=== PATIENT | male | born 1940 | race Caucasian/White ===

== ENCOUNTER 2016-05-11 09:56 | Inpatient (IN) | payer MEDICARE, SELFPAY ==
--- NOTE | ~2016-05-11 | CN ---
Consultation Report [facility] [address] [place]. [address] NAME: MISBAH PLAZA : 44 STATUS : ADM IN [facility]#: [id number] AGE: 75 ADM/REG DATE : 05/11/16 MR#: [id number] REPORT SERV DATE: 05/11/16 DICTATED BY: CHANDLER MANCIA IV DATE: 05/11/16 REPORT STATUS : Draft TRANSCRIBED BY: BUD DATE: 05/11/16 PULMONARY CONSULTATION. DATE OF CONSULTATION: 05/11/2016 REASON FOR REQUEST: Acute on chronic hypercapnic respiratory failure with pneumonia. HISTORY OF PRESENT ILLNESS: History is obtained from the records and from the patient. Mr. Plaza is a 75-year-old male with a history of very severe COPD, paroxysmal atrial fibrillation with rapid ventricular response, remote DVT, and right lung nodule to be followed on serial CT scans, who was admitted with acute on chronic hypercapnic respiratory failure, COPD exacerbation, and right lower lobe pneumonia. The patient was in his normal state of marginal health until about 3 weeks ago when he developed increased chest congestion, shortness of breath, and cough productive of brown phlegm. He had chills, though no documented fever. He was given an unspecified antibiotic by his primary care physician, which he thinks is Ceftin 500 mg for 10 days. Initially, he felt somewhat better, though developed recurrent symptoms. Last night, he felt like he was going to and was unable to get his breath. Because of worsening symptoms, he sought evaluation in the emergency room. Here, chest x-ray demonstrated a new right lower lobe infiltrate and he is more hypercapnic beyond baseline values. He was placed on BiPAP with clinical improvement. The patient had no clear exposure to ill individuals. There was no aspiration. He was compliant with oxygen at 3 L and his bronchodilator medications. He is on Anoro Ellipta and Breo Ellipta and was using his nebulizer twice a day. PULMONARY HISTORY: Remarkable for no history of childhood asthma. He has very severe COPD with a FEV1 of 0.56 L or 19% of predicted. He has not had pneumonia to his knowledge. He has a 80-xndo-dghj smoking history, having quit in 2015. He is not up to date on immunizations, having previously refused. He has additionally not participated in pulmonary rehabilitation. PAST MEDICAL HISTORY: 1. Severe COPD. 2. Paroxysmal atrial fibrillation. 3. Remote DVT. 4. Right lung nodule. SURGERIES: He has never had any surgeries. ALLERGIES: THERE ARE NO KNOWN DRUG ALLERGIES, HOWEVER, HE HAS GOTTEN CRAZY WITH STEROIDS IN THE PAST. OUTPATIENT MEDICATIONS: The patient is on DuoNebs four times a day. He was on Augmentin 500 mg q.10 hours, Lipitor 40 mg daily, diltiazem 240 mg daily, Mucinex 600 mg daily, Lopressor 25 mg twice a day, Spiriva one capsule daily, Advair 250/50, and theophylline 200 mg q.12 Consultation Report [place] [id number] [place]. [address] NAME: MISBAH PLAZA : 42 STATUS : ADM IN [facility]#: [id number] AGE: 75 ADM/REG DATE : 05/11/16 MR#: [id number] REPORT SERV DATE: 05/11/16 DICTATED BY: CHANDLER MANCIA IV DATE: 05/11/16 REPORT STATUS : Draft TRANSCRIBED BY: BUD DATE: 05/11/16 hours, and Decadron was added by Dr. Pedroza. SOCIAL HISTORY: Remarkable for the tobacco use as above. There is no alcohol or illicit drug use. He is and lives with a step granddaughter. FAMILY HISTORY: Remarkable for brother with emphysema. He is unclear of his family history. His parents of just old age. REVIEW OF SYSTEMS: 14 systems reviewed and pertinent positives as above. PHYSICAL EXAMINATION: GENERAL: This is a thin, elderly male, currently arousable, in no current distress. VITAL SIGNS: Blood pressure is 122/65, heart rate is 88, respiratory rate is 19, saturation 93% on BiPAP, temperature is 98.1. HEENT: The patient is normocephalic, atraumatic. Extraocular movements are intact. Pupils react to light. Sclerae and conjunctivae normal. He has a BiPAP mask in place. On quick removal, he has a Mallampati II to III airway with some narrowing of the posterior pharyngeal space. No gross oral lesions are noted. NECK: Without any palpable lymphadenopathy or thyromegaly. CHEST: The patient has some bibasilar, dry inspiratory crackles. There are scattered expiratory rhonchi with a prolonged expiratory phase. Breath sounds are symmetrically diminished. CARDIOVASCULAR: Jugular venous pulsations are difficult to elicit. He has 1+ carotid upstrokes. No obvious bruit. He has a very distant regular S1, S2 with no clear murmur, S3, S4. Peripheral pulses are diminished. ABDOMEN: Scaphoid, soft, nontender. There are hypoactive bowel sounds. There is no palpable hepatosplenomegaly or mass. EXTREMITIES: Demonstrate no cyanosis, clubbing, edema, or palpable cords. He does have some muscle wasting. NEUROLOGIC: Strength is 5-/5 and sensation is intact to light touch. It is a nonfocal exam. IMAGING: Chest x-ray demonstrates a rotated film. There is some minimal elevation of the left hemidiaphragm. There is a new right lower lobe infiltrate. LABS: CBC: Hemoglobin 12, hematocrit 38.6, platelet count was 204,000, white count of 16. INR was 3.5. Chemistries: Sodium 136, potassium 4.4, chloride 89, bicarb 41, BUN 11, creatinine 0.76, glucose of 159, magnesium 1.9. BNP is 706. Most recent blood gas, pH 7.22, pCO2 of 85, PO2 of 86 on BiPAP. ASSESSMENT AND PLAN: 1. Respiratory. We will discontinue the Decadron and Elvin-Dur, which you do not give for a hospitalized patient. We will give him low-dose Solu-Medrol 20 mg q.12 hours, Consultation Report [address] [place]. [address] NAME: MISBAH PLAZA : 44 STATUS : ADM IN PAT#: [id number] AGE: 75 ADM/REG DATE : 05/11/16 MR#: [id number] REPORT SERV DATE: 05/11/16 DICTATED BY: CHANDLER MANCIA IV DATE: 05/11/16 REPORT STATUS : Draft TRANSCRIBED BY: BUD DATE: 05/11/16 DuoNebs will be continued q.4 hours with albuterol q.2 hours as needed, Brovana unit dose twice a day, and Pulmicort 1 mg twice a day. BiPAP will be humidified and used given breaks as tolerated. ABG we obtained only for worsening clinical status. I will give an Acapella valve three times a day, EzPAP when not on the BiPAP. 2. Infectious disease. The patient has recent antibiotics, so we will broaden coverage with cefepime 1 g q.6 hours, vancomycin was given at times a single dose, and he will be given Levaquin to cover atypical organisms. Sputum was sent for Gram stain culture. Blood cultures have been sent. Urine antigen will be sent for Legionella as well as for Pneumococcus. Procalcitonin level will be added to blood in the lab. Immunizations status has been discussed. 3. Neurologic. Thiamine for his debilitated state. Precedex if needed for agitation. 4. Renal. We will place the patient on magnesium 2 g. Phosphate level will be obtained. Electrolyte replacement protocol has been ordered. 5. Hematologic. Therapeutic INR. 6. Gastrointestinal. We will add liver panel to the blood in the lab. 7. Endocrinologic. Thyroid functions will be obtained. Insulin sliding scale has been ordered particularly with the steroids. Hemoglobin A1c will be added to blood in the lab. 8. Social. I had a long discussion with the patient concerning his wishes if he continues to deteriorate. He understands the severe nature of his disease. He wishes to be a do not resuscitate, though we will continue use of BiPAP. Thank you for consulting us. We will follow the patient with you. NM/MODL Chandler Mancia IV, M.D. / [id number] CC: Jagjit Anguiano M.D.
--- NOTE | ~2016-05-11 | HP ---
History And Physical [place] [id number] [place]. [address] NAME: MISBAH MONROE : 44 STATUS : ADM IN [facility]#: [id number] AGE: 75 ADM/REG DATE : 05/11/16 MR#: [id number] REPORT SERV DATE: 05/11/16 DICTATED BY: ISSAC NOE DATE: 05/11/16 REPORT STATUS : Draft TRANSCRIBED BY: MODJenniffer DATE: 05/11/16 DATE OF ADMISSION: 05/11/2016 REASON FOR ADMISSION: Hypercarbic respiratory failure with pneumonia. HISTORY OF PRESENT ILLNESS: This is a 75-year-old white male with known history of pneumonia. He has about a 70-pack year history of smoking. Quit in 2014. He also quit alcohol in 2014. He has been losing weight recently. He has been followed by Dr. Granda at the [facility]. He has also been followed up with his primary care by Dr. Atif Payan, in both [place] and [place]. The patient has been short of breath the last three days, not eating very much. He has been losing more weight. He presented to the emergency room with a PaCO2 of 75, was placed on BiPAP, 15/5, and his PaCO2 worsened to 86. He had a chest x-ray showing evidence of left lower lobe pneumonia. He also has chronic fibrotic lung disease with scarring throughout. Because of shortness of breath, respiratory failure, and need for continuous BiPAP, the patient is being admitted to the Intermediate Intensive Care Unit. Dr. Granda will be consulted as he does have significant knowledge of the patient's history in the past. The patient says he was in the hospital before and went crazy when they gave him Solu- Medrol, though he was in the Intensive Care Unit setting and may have had some hallucination anxiety because of that as well. He is on 2.5 L a minute nasal cannula oxygen at home, and has been declining over the last two days. He does have dyspnea with exertion. Uses oxygen continuously. He had a cold recently with a cough for about two weeks duration prior to this abrupt decline. PAST MEDICAL HISTORY: He was last hospitalized here in February 2015. He has not been hospitalized since that time. He has atrial fibrillation and rapid ventricular response. DC electrical cardioversion was attempted by Dr. Ramires. He is on Coumadin for that. He has lower extremity deep venous thrombosis previously diagnosed at [facility]. He does have persistent leukocytosis and right upper lobe nodule. SOCIAL HISTORY: He grew up in [place], [place]; moved up here about 30 years ago. Worked at [employer] in both [place] and in [place]. He smoked cigarettes most of his life. An extensive approximately 70-pack year. He lives at home with a step granddaughter from [place] in [facility]. He quit smoking cigarettes in 2014. Quit drinking in 2014 as well. He does not attend scientologist. ALLERGIES: INCLUDE SOLU-MEDROL, CAUSING ADVERSE REACTION WITH CONFUSION. FAMILY HISTORY: Peripheral vascular disease runs in the family. Mother and father of old age of unknown causes. MEDICATIONS: Home medications DuoNeb 4 times a day, Augmentin 500 b.i.d. for 10 days, History And Physical [address] [address] NAME: MISBAH MONROE : 44 STATUS : ADM IN [facility]#: [id number] AGE: 75 ADM/REG DATE : 05/11/16 MR#: [id number] REPORT SERV DATE: 05/11/16 DICTATED BY: ISSAC NOE DATE: 05/11/16 REPORT STATUS : Draft TRANSCRIBED BY: BUD DATE: 05/11/16 vitamin C 500 mg p.o. daily, Lipitor 40 mg p.o. daily, diltiazem ER 240 mg p.o. daily, Coretta- [place] Cold and Cough formula every 4 hours as needed, Advair Diskus 250/50 once a day, Mucinex 600 mg p.o. q.12 hours, Motrin 600 mg one time a day, metoprolol 25 mg p.o. b.i.d., Theraflu cold packs twice a day, Spiriva once a day, fflr-xfw-rsqyizj potassium, immune support system vitamins, and warfarin 6 mg p.o. at bedtime. REVIEW OF SYSTEMS: He denies chest pain. He has shortness of breath. He has a cough, productive of yellow sputum. He has had difficulty breathing, dyspnea on exertion, swelling in the lower extremities. No melena, hematemesis, fits, seizures, unilateral weakness, nausea, vomiting, or diarrhea. The remainder of the review of systems is negative. PHYSICAL EXAMINATION: VITAL SIGNS: His blood pressure is 136/72, with a heart rate of 80, respiratory rate 16, and afebrile. HEENT: EOMI. Sclerae clear. Conjunctivae pink. NECK: No bruit without any JVD. CHEST: Decreased breath sounds throughout with some diffuse expiratory wheezes. HEART: Regular S1, S2 without murmur, gallop, or rub. ABDOMEN: Soft, nontender. Bowel sounds are positive. Scaphoid. EXTREMITIES: Have 2+ pitting edema in the ankles. He had distal pulses that are palpable. NEUROLOGIC: His radio repairer is equal and symmetric bilaterally. Coordination is intact. He has no tremor. He is symmetric neurologically bilaterally. He is difficult to hear through the BiPAP mask. SKIN: Pale throughout. No AKs noted, does have some ecchymoses of his arms and hands. LYMPHATICS: There is no adenopathy palpable. LABORATORY DATA: The arterial blood gas #2 was 7.23, 87, and 89. Initial arterial blood gas, 7.29, 75, and 89. White count of 16,000, hemoglobin of 12.0, hematocrit 38.6, and platelets were 204,000. INR of 3.5. Flu screen is negative. Sodium is 136, potassium 4.4, PaCO2 of 41, creatinine 0.76, BUN 11, and glucose 159. Troponin is less than 0.02. BNP was 706. Chest x-ray shows evidence of right basilar atelectasis versus infiltrate. IMPRESSION: 1. Right lower lobe pneumonia. 2. Chronic obstructive pulmonary disease. 3. Pulmonary fibrosis. 4. History of atrial fibrillation. 5. Acute hypercarbic respiratory failure with hypoxemia. 6. Recent upper respiratory tract infection. 7. History of hallucinations with high-dose steroids. History And Physical [address] [address] NAME: MISBAH MONROE : 44 STATUS : ADM IN [facility]#: [id number] AGE: 75 ADM/REG DATE : 05/11/16 MR#: [id number] REPORT SERV DATE: 05/11/16 DICTATED BY: ISSAC NOE DATE: 05/11/16 REPORT STATUS : Draft TRANSCRIBED BY: MODJenniffer DATE: 05/11/16 PLAN: I discussed end-of-life issues with the patient. The patient will except ventilation and intubation in this situation if necessary. Dr. Granda knows him better. We will consult Dr. Granda for help with therapy and prognosis. We will start with on and off CU EzPAP, continuous CPAP, and resuscitation, going to give him IV Zithromax and Rocephin for his pneumonia of the right lower lobe. JACOB/BUD Issac Noe M.D. / [id number] CC: Jagjit Anguiano M.D. William John Fritsch, Jr, MD Hisham F. Qutob, MD William Oellerich, M.D., Ph.D, F.A.C.C.
--- NOTE | ~2016-05-11 | IDS ---
Interim Discharge Summary [facility] [address] [place]. [address] NAME: MISBAH MONROE : 44 STATUS : ADM IN [facility]#: [id number] AGE: 75 ADM/REG DATE : 05/11/16 MR#: [id number] REPORT SERV DATE: 05/15/16 DICTATED BY: JUAN MEJÍA DATE: 05/15/16 REPORT STATUS : Draft TRANSCRIBED BY: MODL DATE: 05/15/16 ADMISSION DATE: 05/11/2016 DISCHARGE DATE: CURRENT INTERIM DIAGNOSES: 1. Acute on chronic respiratory failure, hypoxic and hypercapnic. 2. Severe chronic obstructive pulmonary disease, end stage. 3. Right lower lobe pneumonia, present on admission. 4. Leukocytosis related to steroids, most recently .2. 5. Paroxysmal atrial fibrillation, also patient is a DNR/DNI. HISTORY OF PRESENT ILLNESS: This is a pleasant 75-year-old white male who presented with worsening shortness of breath, not eating much and losing weight. Please see initial H and P of Dr. Silver Pedroza. This patient was admitted to the Hospitalist Service for further evaluation and treatment. Initially placed on some IV antibiotics, supportive care with nebulizers, oxygen, and BiPAP, and the patient was initially transferred to the intermediate care, where he was seen by Dr. Jaime Larsen. CONSULTANTS DURING THIS ADMISSION: Include Pulmonary Services, Dr. Mancia. His condition improved somewhat and he was transferred from intermediate care out to telemetry floor [address] [place] for continued intermittent use of BiPAP. IV antibiotics were continued and steroids were continued. I began seeing the patient on 05/14/2016 where we were able to make a little bit of additional progress in weaning his BiPAP and mobilization from bed to chair, although he remains incredibly dyspneic with minimal exertion. After discussion with the patient at bedside, we agreed upon having Palliative Care to come see the patient as well, and he was seen by Palliative Care on 05/15/2016. I began to deescalate his antibiotics given the fact that his procalcitonin is negative and he has been afebrile with some clinical improvement. At this time, Pulmonary Services is considering a home trilogy unit, if approved. His IV fluid has been discontinued and we will continue BiPAP therapy at hour of sleep. Appreciate both Pulmonology and Palliative Care's help in this case. LUIS FERNANDO/MODL Juan Mejía NP / [id number] CC: MD Atif Camargo II, M.D.
--- NOTE | ~2016-05-11 | DS ---
Discharge Summary [facility] [address] [place]. [address] NAME: MISBAH MONROE : 44 STATUS : ADM IN PAT#: [id number] AGE: 75 ADM/REG DATE : 05/11/16 MR#: [id number] REPORT SERV DATE: 05/18/16 DICTATED BY: JENNA PIZARRO DATE: 05/18/16 REPORT STATUS : Draft TRANSCRIBED BY: MODJenniffer DATE: 05/18/16 ADMISSION DATE: 05/11/2016 DISCHARGE DATE: 05/18/2016 HOSPITAL COURSE: This is a 75-year-old male, who has a known significant past medical history of very severe COPD, paroxysmal atrial fibrillation, RVR, history of remote DVT, right lung nodule, followed up on CT scans in the future recommendation, FEV1 of 0.56 or 19% predicted, a-pack-year history of smoking, quit 2014. Here with acute exacerbation of COPD and right lower lobe pneumonia. As an outpatient, he was put on Ceftin, felt somewhat better, then felt like he was "about to ," unable to get his breath, placed on BiPAP here, clinical improvement. The patient was DNR/DNI. Had significant SIRS with leukocytosis, on corticosteroids, his procalcitonin though was negative x2, less than 0.05. Given his dyspnea and very severe COPD, asked for Palliative Care, and the patient stated he was ready for hospice at this time. The antibiotics were de-escalated given his procalcitonin being negative. Needs a Trilogy ventilator unit, I have set that up at this time, deferring with Case Management regarding that. Did have his BiPAP changed from 15/6 to 20/6 given ABG is 7.46/72/78 on 35% FiO2. The Trilogy will auto-adjust as an outpatient. The patient wants to go home, but I am convincing the patient to go to the facility given his high re-admission risk and significant debility. [facility] is one of the only places that will accept a Trilogy, we will attempt to facilitate to that location. Did increase his metoprolol here for better blood pressure control. DISCHARGE MEDICATIONS: His discharge medications will include vitamin C 500 p.o. daily as well as Lipitor 40 p.o. daily as well as diltiazem CD 240 p.o. daily as well as Flonase nasal spray 1 spray to each nostril, has some nasal stuffiness, metoprolol tartrate 37.5 p.o. b.i.d., Afrin nasal spray, [place] Mist nasal spray, Spiriva 18-mcg capsule inhaled daily, Coumadin 5 mg p.o. daily, prednisone 40 mg daily for 3 more days, as well as Brovana 50 mcg neb b.i.d. and budesonide 0.5 neb b.i.d. As a result, will follow with Pulmonary in 3 to 6 weeks, PCP in 2 weeks, and pulmonary Rehab as an outpatient. Educated on the cardiac 2-g sodium-restricted diet as well. DISCHARGE DIAGNOSES: 1. Sepsis due to right lower lobe pneumonia with severe hypoxia, present on admission. 2. Chronic obstructive pulmonary disease exacerbation. 3. Acute on chronic hypoxic hypercapnic respiratory failure. 4. Paroxysmal atrial fibrillation. 5. Debility. All questions were answered, it took well over 30 minutes to do. CONSULTS: Pulmonary, Hospice, as well as Palliative Care. WST/MODL Discharge Summary [address] [address] NAME: MISBAH MONROE : 44 STATUS : ADM IN [facility]#: [id number] AGE: 75 ADM/REG DATE : 05/11/16 MR#: [id number] REPORT SERV DATE: 05/18/16 DICTATED BY: JENNA PIZARRO DATE: 05/18/16 REPORT STATUS : Draft TRANSCRIBED BY: MODL DATE: 05/18/16 Jenna Pizarro DO / [id number] CC: DO Atif Martin M.D.
[~2016-05-11 09:56] MED LIST: ADVAIR250 INH; ASAB PO; CARDCD360 PO; COMBIVENT RESPIM4 GM INH; COUMADIN4 MG PO; DUONEB INH; FLORASTOR250 MG PO; GGEXPUD PO; LEVAQUIN750 MG PO; LIPITOR40 PO; LOP50 PO; LOVENOX60 SC; MELATONIN5 M1 PO; MULTIVIT/MIN PO; PRADAXA150 MG PO; PRILO PO; SPIRIVA INH
[2016-05-11 10:55] LABS: BE (BASE EXCESS) 6.1 MEQ/L (0 +/- 2.5); DEVICE NC; HCO3 (ACTUAL BICARBONATE) 35.2 MEQ/L (23-27); INSTRUMENT SERIAL # 8087; METHEMOGLOBIN 0.2 % (0-3); O2 CONTENT 17.3 VOL% (18-24); PCO2 (CO2 TENSION) 75 MMHG (35-45); PO2 (O2 TENSION) 89 MMHG (79-93); SAMPLE Arterial; pH 7.29 (7.37-7.43)
[2016-05-11 10:56] LABS: ALLENS TEST Pos
[2016-05-11 11:04] LABS: BASOPHILS 0.2 %; BASOPHILS ABSOLUTE 0.03 10/3/uL (0.0-0.16); EOSINOPHILS 0.1 %; EOSINOPHILS ABSOLUTE 0.02 10/3/uL (0.0-0.53); ER CBC TAT 0 Hrs 05 Mins; IMMATURE GRANULOCYTES 0.8 %; IMMATURE GRANULOCYTES ABSOLUTE 0.13 10/3/uL (0.0-0.11); LYMPHOCYTES 5.6 %; LYMPHOCYTES ABSOLUTE 0.89 10/3/uL (0.67-4.30); MEAN CORPUSCULAR HEMOGLOB 30.5 pg (26.0-34.0); MONOCYTES 6.2 %; MONOCYTES ABSOLUTE 0.99 10/3/uL (0.21-1.20); NEUTROPHILS 87.1 %; NEUTROPHILS ABSOLUTE 13.96 10/3/uL (2.02-8.40); RBC DISTRIBUTION WIDTH 14.5 % (12.0-16.0); RED CELL COUNT 3.94 10/6/uL (4.7-6.1)
[2016-05-11 11:05] LABS: HEMATOCRIT 38.6 % (40.0-51.0); MANUAL DIFF NO %; MEAN CORPUS HGB CONC 31.1 g/dL (32.0-36.0); PLATELET COUNT 204 10/3/uL (150-400)
[2016-05-11 11:14] LABS: INTERNATIONAL NORMAL RATI 3.5 UNITS (-)
[2016-05-11 11:15] LABS: PARTIAL THROMBO TIME 56.2 SEC (22.5-37.2); PROTIME (NOT ORD) 35.2 SEC (12.0-14.5)
[2016-05-11 11:17] LABS: INFLUENZA A SCREEN NEGATIVE (NEGATIVE); INFLUENZA B SCREEN NEGATIVE (NEGATIVE)
[2016-05-11 11:20] LABS: BUN (BLOOD UREA NITROGEN) 11 MG/DL (6-23); CALCIUM, SERUM 8.6 MG/DL (8.5-10.4); CHEST PAIN PROFILE TAT 0 Hrs 21 Mins; CHLORIDE, SERUM 89 MMOL/L (96-112); CO2 (CARBON DIOXIDE) 41 MMOL/L (24-34); CREATININE 0.76 MG/DL (0.70-1.30); GFR AFRICAN AMERICAN 105 ML/MIN (>=60); GFR NON AFRICAN AMERICAN 91 ML/MIN (>=60); GLUCOSE, SERUM 159 MG/DL (60-99); POTASSIUM, SERUM 4.4 MMOL/L (3.5-5.3); SODIUM, SERUM 136 MMOL/L (135-148); TROPONIN I <0.02 NG/ML (<0.05)
[2016-05-11 11:36] LABS: B NATRIURETIC PEPTIDE (BNP) 705.9 PG/ML (< 100.0)
[2016-05-11] MEDS ORDERED: TAZTIA X1 PO (13:12)
[2016-05-11] MEDS ORDERED: LIPITOR40 PO (13:12)
[2016-05-11] MEDS ORDERED: C5 PO (13:14)
[2016-05-11] MEDS ORDERED: LOP25 PO (13:14)
[2016-05-11] MEDS ORDERED: ALKA-SELTZER P1 EAC3 PO (13:15)
[2016-05-11] MEDS ORDERED: MUCINEX600 MG PO (13:15)
[2016-05-11] MEDS ORDERED: THERAFLU CL1 PO (13:15)
[2016-05-11] MEDS ORDERED: OTC POTASSIUM PO (13:16)
[2016-05-11] MEDS ORDERED: VITC500 PO (13:16)
[2016-05-11] MEDS ORDERED: IBU600 PO (13:16)
[2016-05-11] MEDS ORDERED: [UNRECOGNIZED DRUG - OTHER] PO (13:17)
[2016-05-11] MEDS ORDERED: ADVAIR250 INH (13:17)
[2016-05-11] MEDS ORDERED: AUG500 PO (13:17)
[2016-05-11] MEDS ORDERED: DUONEB INH (13:18)
[2016-05-11] MEDS ORDERED: SPIRIVA INH (13:18)
[2016-05-11 13:20] LABS: ALLENS TEST Pos; BE (BASE EXCESS) 5.5 MEQ/L (0 +/- 2.5); BIPAP 15/5 cm.H2O; HCO3 (ACTUAL BICARBONATE) 35.7 MEQ/L (23-27); HEMOBLOGIN CONTENT 12.5 G/DL (14-18); INSTRUMENT SERIAL # 8087; METHEMOGLOBIN 0.3 % (0-3); O2 CONTENT 16.6 VOL% (18-24); PCO2 (CO2 TENSION) 87 MMHG (35-45); PO2 (O2 TENSION) 89 MMHG (79-93); SAMPLE Arterial; pH 7.23 (7.37-7.43)
[2016-05-11 16:24] LABS: BE (BASE EXCESS) 4.2 MEQ/L (0 +/- 2.5); BIPAP 18/6 cm.H2O; CARBOXYHEMOGLOBIN 0.8 % (0-3); HCO3 (ACTUAL BICARBONATE) 34.4 MEQ/L (23-27); HEMOBLOGIN CONTENT 12.2 G/DL (14-18); INSTRUMENT SERIAL # 8083; METHEMOGLOBIN 0.3 % (0-3); O2 CONTENT 16.3 VOL% (18-24); OPERATOR ID 13715; PCO2 (CO2 TENSION) 85 MMHG (35-45); PO2 (O2 TENSION) 86 MMHG (79-93); SAMPLE Arterial; pH 7.22 (7.37-7.43)
[2016-05-11 16:25] LABS: ALLENS TEST Pos
[2016-05-11 18:06] LABS: DIRECT BILIRUBIN 0.2 MG/DL (0.0-0.4); INDIRECT BILIRUBIN(NOT ORDER) 0.4 MG/DL (0.1-0.9); PHOSPHORUS, SERUM 3.2 MG/DL (2.5-4.5); SGOT(AST) 25 U/L (5-40); SGPT(ALT) 20 U/L (5-65); TOTAL BILIRUBIN 0.6 MG/DL (0-1.2); TOTAL PROTEIN 7.9 G/DL (6.0-8.5)
[2016-05-11 18:09] LABS: ALKALINE PHOSPHATASE 94 U/L (45-117); ULTRASENSITIVE TSH 0.622 MCIU/ML (0.358-3.740)
[2016-05-11 18:43] LABS: PROCALCITONIN 0.05 ng/mL (<0.5)
[2016-05-11 21:57] LABS: GLYCOHEMOGLOBIN (HbA1c) 5.7 % (4.7-6.1)
[2016-05-12 04:42] LABS: BASOPHILS 0.1 %; BASOPHILS ABSOLUTE 0.01 10/3/uL (0.0-0.16); EOSINOPHILS 0.1 %; EOSINOPHILS ABSOLUTE 0.01 10/3/uL (0.0-0.53); HEMATOCRIT 35.1 % (40.0-51.0); HEMOGLOBIN 11.2 g/dL (13.6-17.8); IMMATURE GRANULOCYTES 0.7 %; IMMATURE GRANULOCYTES ABSOLUTE 0.09 10/3/uL (0.0-0.11); LYMPHOCYTES 6.5 %; LYMPHOCYTES ABSOLUTE 0.78 10/3/uL (0.67-4.30); MEAN CORPUS HGB CONC 31.9 g/dL (32.0-36.0); MEAN CORPUSCULAR HEMOGLOB 31.2 pg (26.0-34.0); MEAN CORPUSCULAR VOLUME 97.8 fL (80-100); MEAN PLATELET VOLUME 9.1 fL (9.2-13.0); MONOCYTES 4.2 %; MONOCYTES ABSOLUTE 0.51 10/3/uL (0.21-1.20); NEUTROPHILS 88.4 %; NEUTROPHILS ABSOLUTE 10.67 10/3/uL (2.02-8.40); PLATELET COUNT 185 10/3/uL (150-400); RBC DISTRIBUTION WIDTH 14.8 % (12.0-16.0); RED CELL COUNT 3.59 10/6/uL (4.7-6.1); WHITE BLOOD CELLS 12.1 10/3/uL (4.5-10.5)
[2016-05-12 04:46] LABS: INTERNATIONAL NORMAL RATI 3.3 UNITS (-); MANUAL DIFF NO %; PROTIME (NOT ORD) 33.1 SEC (12.0-14.5)
[2016-05-12 04:52] LABS: BUN (BLOOD UREA NITROGEN) 12 MG/DL (6-23); CALCIUM, SERUM 8.6 MG/DL (8.5-10.4); CHLORIDE, SERUM 93 MMOL/L (96-112); CREATININE 0.75 MG/DL (0.70-1.30); GFR AFRICAN AMERICAN 105 ML/MIN (>=60); GFR NON AFRICAN AMERICAN 91 ML/MIN (>=60); GLUCOSE, SERUM 136 MG/DL (60-99); POTASSIUM, SERUM 4.1 MMOL/L (3.5-5.3); SODIUM, SERUM 135 MMOL/L (135-148)
[2016-05-12 05:01] LABS: CO2 (CARBON DIOXIDE) 34 MMOL/L (24-34)
[2016-05-12 08:11] LABS: ASCORBIC ACID (UR NOT ORDER) 40 (NEG); BILIRUBIN, URINE NEGATIVE (NEG); KETONE, URINE NEGATIVE (NEG); LEUKOCYTE ESTERASE(NOT OR NEG (NEG); WBC (NOT ORDERED) (RFLEX) 2 (0-5)
[2016-05-13 06:34] LABS: INTERNATIONAL NORMAL RATI 1.8 UNITS (-)
[2016-05-13 06:43] LABS: PROTIME (NOT ORD) 20.7 SEC (12.0-14.5)
[2016-05-13 06:52] LABS: BUN (BLOOD UREA NITROGEN) 17 MG/DL (6-23); CALCIUM, SERUM 9.3 MG/DL (8.5-10.4); CHLORIDE, SERUM 98 MMOL/L (96-112); CO2 (CARBON DIOXIDE) 33 MMOL/L (24-34); CREATININE 0.74 MG/DL (0.70-1.30); GFR AFRICAN AMERICAN 106 ML/MIN (>=60); GFR NON AFRICAN AMERICAN 92 ML/MIN (>=60); GLUCOSE, SERUM 152 MG/DL (60-99); PHOSPHORUS, SERUM 2.1 MG/DL (2.5-4.5); POTASSIUM, SERUM 4.9 MMOL/L (3.5-5.3); SODIUM, SERUM 137 MMOL/L (135-148)
[2016-05-13 07:45] LABS: PROCALCITONIN <0.05 ng/mL (<0.5)
[2016-05-13 07:47] LABS: BASOPHILS 0.1 %; BASOPHILS ABSOLUTE 0.02 10/3/uL (0.0-0.16); EOSINOPHILS 0.1 %; EOSINOPHILS ABSOLUTE 0.01 10/3/uL (0.0-0.53); HEMATOCRIT 34.2 % (40.0-51.0); HEMOGLOBIN 10.9 g/dL (13.6-17.8); IMMATURE GRANULOCYTES 0.8 %; IMMATURE GRANULOCYTES ABSOLUTE 0.14 10/3/uL (0.0-0.11); LYMPHOCYTES 5.9 %; MEAN CORPUS HGB CONC 31.9 g/dL (32.0-36.0); MEAN CORPUSCULAR HEMOGLOB 30.7 pg (26.0-34.0); MEAN CORPUSCULAR VOLUME 96.3 fL (80-100); MEAN PLATELET VOLUME 9.2 fL (9.2-13.0); MONOCYTES 4.4 %; MONOCYTES ABSOLUTE 0.81 10/3/uL (0.21-1.20); NEUTROPHILS 88.7 %; NEUTROPHILS ABSOLUTE 16.51 10/3/uL (2.02-8.40); PLATELET COUNT 177 10/3/uL (150-400); RBC DISTRIBUTION WIDTH 14.9 % (12.0-16.0); RED CELL COUNT 3.55 10/6/uL (4.7-6.1)
[2016-05-13 07:51] LABS: MANUAL DIFF NO %; WHITE BLOOD CELLS 18.6 10/3/uL (4.5-10.5)
[2016-05-14 06:31] LABS: BASOPHILS 0.1 %; BASOPHILS ABSOLUTE 0.02 10/3/uL (0.0-0.16); EOSINOPHILS 0 %; HEMATOCRIT 33.7 % (40.0-51.0); HEMOGLOBIN 10.8 g/dL (13.6-17.8); IMMATURE GRANULOCYTES 1.8 %; IMMATURE GRANULOCYTES ABSOLUTE 0.35 10/3/uL (0.0-0.11); LYMPHOCYTES 6.6 %; LYMPHOCYTES ABSOLUTE 1.32 10/3/uL (0.67-4.30); MANUAL DIFF NO %; MEAN CORPUSCULAR HEMOGLOB 31.2 pg (26.0-34.0); MEAN CORPUSCULAR VOLUME 97.4 fL (80-100); MEAN PLATELET VOLUME 9.1 fL (9.2-13.0); MONOCYTES 4.8 %; MONOCYTES ABSOLUTE 0.95 10/3/uL (0.21-1.20); NEUTROPHILS 86.7 %; NEUTROPHILS ABSOLUTE 17.26 10/3/uL (2.02-8.40); PLATELET COUNT 194 10/3/uL (150-400); RBC DISTRIBUTION WIDTH 15.3 % (12.0-16.0); RED CELL COUNT 3.46 10/6/uL (4.7-6.1); WHITE BLOOD CELLS 19.9 10/3/uL (4.5-10.5)
[2016-05-14 06:35] LABS: INTERNATIONAL NORMAL RATI 1.4 UNITS (-)
[2016-05-14 06:36] LABS: PROTIME (NOT ORD) 17.2 SEC (12.0-14.5)
[2016-05-14 06:42] LABS: BUN (BLOOD UREA NITROGEN) 22 MG/DL (6-23); CHLORIDE, SERUM 98 MMOL/L (96-112); CO2 (CARBON DIOXIDE) 36 MMOL/L (24-34); CREATININE 0.62 MG/DL (0.70-1.30); GFR AFRICAN AMERICAN 114 ML/MIN (>=60); GFR NON AFRICAN AMERICAN 98 ML/MIN (>=60); GLUCOSE, SERUM 151 MG/DL (60-99); PHOSPHORUS, SERUM 2.6 MG/DL (2.5-4.5); POTASSIUM, SERUM 4.1 MMOL/L (3.5-5.3); SODIUM, SERUM 140 MMOL/L (135-148)
[2016-05-15 05:45] LABS: BASOPHILS 0.2 %; BASOPHILS ABSOLUTE 0.04 10/3/uL (0.0-0.16); EOSINOPHILS 0 %; HEMATOCRIT 33.3 % (40.0-51.0); HEMOGLOBIN 10.9 g/dL (13.6-17.8); IMMATURE GRANULOCYTES 2.4 %; IMMATURE GRANULOCYTES ABSOLUTE 0.49 10/3/uL (0.0-0.11); LYMPHOCYTES 6.9 %; MANUAL DIFF NO %; MEAN CORPUS HGB CONC 32.7 g/dL (32.0-36.0); MEAN CORPUSCULAR VOLUME 97.7 fL (80-100); MONOCYTES 6.6 %; MONOCYTES ABSOLUTE 1.33 10/3/uL (0.21-1.20); NEUTROPHILS 83.9 %; NEUTROPHILS ABSOLUTE 16.96 10/3/uL (2.02-8.40); PLATELET COUNT 177 10/3/uL (150-400); RED CELL COUNT 3.41 10/6/uL (4.7-6.1); WHITE BLOOD CELLS 20.2 10/3/uL (4.5-10.5)
[2016-05-15 05:55] LABS: BUN (BLOOD UREA NITROGEN) 25 MG/DL (6-23); CALCIUM, SERUM 8.9 MG/DL (8.5-10.4); CHLORIDE, SERUM 95 MMOL/L (96-112); CO2 (CARBON DIOXIDE) 37 MMOL/L (24-34); CREATININE 0.66 MG/DL (0.70-1.30); GFR AFRICAN AMERICAN 111 ML/MIN (>=60); GFR NON AFRICAN AMERICAN 96 ML/MIN (>=60); GLUCOSE, SERUM 150 MG/DL (60-99); PHOSPHORUS, SERUM 2.5 MG/DL (2.5-4.5); POTASSIUM, SERUM 4.1 MMOL/L (3.5-5.3); SODIUM, SERUM 139 MMOL/L (135-148)
[2016-05-15 05:56] LABS: INTERNATIONAL NORMAL RATI 1.6 UNITS (-); PROTIME (NOT ORD) 18.5 SEC (12.0-14.5)
[2016-05-15 05:57] LABS: ALBUMIN 2.7 G/DL (3.5-5.0)
[2016-05-16 04:57] LABS: HEMATOCRIT 34.9 % (40.0-51.0); HEMOGLOBIN 11.3 g/dL (13.6-17.8); MEAN CORPUS HGB CONC 32.4 g/dL (32.0-36.0); MEAN CORPUSCULAR HEMOGLOB 31.2 pg (26.0-34.0); MEAN CORPUSCULAR VOLUME 96.4 fL (80-100); MEAN PLATELET VOLUME 8.7 fL (9.2-13.0); PLATELET COUNT 184 10/3/uL (150-400); RED CELL COUNT 3.62 10/6/uL (4.7-6.1); WHITE BLOOD CELLS 23.7 10/3/uL (4.5-10.5)
[2016-05-16 05:03] LABS: INTERNATIONAL NORMAL RATI 2.4 UNITS (-)
[2016-05-16 05:05] LABS: CHLORIDE, SERUM 93 MMOL/L (96-112); CO2 (CARBON DIOXIDE) 36 MMOL/L (24-34); GFR AFRICAN AMERICAN 116 ML/MIN (>=60); GFR NON AFRICAN AMERICAN 100 ML/MIN (>=60); GLUCOSE, SERUM 141 MG/DL (60-99); POTASSIUM, SERUM 4.2 MMOL/L (3.5-5.3); PROTIME (NOT ORD) 25.6 SEC (12.0-14.5); SODIUM, SERUM 138 MMOL/L (135-148)
[2016-05-16 05:06] LABS: BUN (BLOOD UREA NITROGEN) 18 MG/DL (6-23)
[2016-05-16 05:09] LABS: MANUAL DIFF YES %
[2016-05-16 05:34] LABS: BAND NEUTROPHILS 5 %; LYMPHOCYTES 8 %; MONOCYTES 2 %; MONOCYTES ABSOLUTE (CALC) 0.47 10/3/uL (0.21-1.20); NEUTROPHILS ABSOLUTE (CALC) 21.33 10/3/uL (2.02-8.40); PLATELET ESTIMATE ADQ (ADEQUATE); RBC MORPHOLOGY NORM (NORMAL); SEGMENTED NEUTROPHIL (0) 85 %; TOTAL NUCLEATED CELLS 100
[2016-05-16 17:12] LABS: PROCALCITONIN <0.05 ng/mL (<0.5)
[2016-05-17 04:04] LABS: ALLENS TEST Pos; BE (BASE EXCESS) 21.8 MEQ/L (0 +/- 2.5); BIPAP 16/5 cm.H2O; CARBOXYHEMOGLOBIN 0.2 % (0-3); HCO3 (ACTUAL BICARBONATE) 49.6 MEQ/L (23-27); HEMOBLOGIN CONTENT 12.1 G/DL (14-18); INSTRUMENT SERIAL # 8083; METHEMOGLOBIN 0.2 % (0-3); O2 CONTENT 16.3 VOL% (18-24); OPERATOR ID 30013; PCO2 (CO2 TENSION) 72 MMHG (35-45); PO2 (O2 TENSION) 78 MMHG (79-93); SAMPLE Arterial; pH 7.46 (7.37-7.43)
[2016-05-17 06:30] LABS: INTERNATIONAL NORMAL RATI 3.3 UNITS (-); PROTIME (NOT ORD) 33.3 SEC (12.0-14.5)
[2016-05-18 04:53] LABS: HEMOGLOBIN 12.1 g/dL (13.6-17.8); MEAN CORPUS HGB CONC 31.8 g/dL (32.0-36.0); MEAN CORPUSCULAR HEMOGLOB 30.7 pg (26.0-34.0); MEAN CORPUSCULAR VOLUME 96.4 fL (80-100); MEAN PLATELET VOLUME 9.2 fL (9.2-13.0); PLATELET COUNT 207 10/3/uL (150-400); RBC DISTRIBUTION WIDTH 14.9 % (12.0-16.0); RED CELL COUNT 3.94 10/6/uL (4.7-6.1)
[2016-05-18 04:56] LABS: MANUAL DIFF YES %; WHITE BLOOD CELLS 29.3 10/3/uL (4.5-10.5)
[2016-05-18 05:08] LABS: INTERNATIONAL NORMAL RATI 2.9 UNITS (-); PROTIME (NOT ORD) 29.8 SEC (12.0-14.5)
[2016-05-18 05:29] LABS: BAND NEUTROPHILS 2 %; IMMATURE GRANS ABSOLUTE (CALC) 0.59 10/3/uL (0.0-0.11); LYMPHOCYTES 7 %; LYMPHOCYTES ABSOLUTE (CALC) 2.05 10/3/uL (0.67-4.30); METAMYELOCYTES 2 %; MONOCYTES 5 %; MONOCYTES ABSOLUTE (CALC) 1.47 10/3/uL (0.21-1.20); SEGMENTED NEUTROPHIL (0) 84 %; TOTAL NUCLEATED CELLS 100
[2016-05-18 05:30] LABS: ACANTHOCYTES OCC (0-2/OIF); ANISOCYTOSIS 1+ (5-10/OIF) (0-5/OIF); BASOPHILIC STIPPLING 1+ (2-5/OIF) (0-1/OIF); ELLIPTOCYTES 1+ (3-10/OIF) (0-2/OIF); PLATELET ESTIMATE ADQ (ADEQUATE); POIKILOCYTOSIS 1+ (5-10/OIF) (0-5/OIF)
[2016-05-18] MEDS ORDERED: FLONASE NAS (13:00)
[2016-05-18] MEDS ORDERED: LOP25 PO (13:02)
[2016-05-18] MEDS ORDERED: OCEAN NAS (13:03)
[2016-05-18] MEDS ORDERED: AFRIN15 NAS (13:03)
[2016-05-18] MEDS ORDERED: P20 PO (13:07)
[2016-05-18] MEDS ORDERED: BROVANA15 MCG INH (13:09)
[2016-05-18] MEDS ORDERED: ALBUTEROL5 INH (13:09)
[2016-05-18] MEDS ORDERED: PULRESP.5 INH (13:10)
== END 2016-05-18 17:54 | disposition home health service (06) | DRG 871 ==
LOC: ER 09:56 → IMCU 14:36 → 6NO 05-12 18:43
PROVIDERS: Emergency Medicine; Internal Medicine; Internal Medicine Critical Care Medicine; Nurse Practitioner Family
PROC: 5A09357 Assistance with Respiratory Ventilation, Less than 24 Consecutive Hours, Continuous Positive Airway Pressure (ICD-10-PCS; principal; 2016-05-11)
DX: A41.9 Sepsis, unspecified organism (principal); J96.22 Acute and chronic respiratory failure with hypercapnia; J96.21 Acute and chronic respiratory failure with hypoxia; J18.9 Pneumonia, unspecified organism; I48.0 Paroxysmal atrial fibrillation; J84.10 Pulmonary fibrosis, unspecified; J44.1 Chronic obstructive pulmonary disease with (acute) exacerbation; Z68.1 Body mass index [BMI] 19.9 or less, adult; R53.81 Other malaise; R63.4 Abnormal weight loss; Z66 Do not resuscitate; Z51.5 Encounter for palliative care; Z79.01 Long term (current) use of anticoagulants; Z87.891 Personal history of nicotine dependence; Z86.718 Personal history of other venous thrombosis and embolism; Z88.8 Allergy status to other drugs, medicaments and biological substances
CPT/HCPCS: 36600; 71010; 71020; 80048; 80069; 80076; 81001; 82805; 82962; 83036; 83605; 83735; 83880; 84100; 84145; 84439; 84443; 84484; 85025; 85610; 85730; 87040; 87070; 87205; 87449; 87804; 94640; 94660; 96374; 97162-GP; 99291; A9270-GY; G8978-CK-GP; G8979-CJ-GP; J0456; J0692; J1170; J1956; J2405; J2920; J2930; J3370; J3411